=== PATIENT | male | born 1970 | race Caucasian/White ===

== ENCOUNTER 2018-01-31 10:04 | Day surgery (SDC) | payer OTHER, SELFPAY ==
[2018-01-27 12:52] LABS: Hematocrit 45.5 % (40-54); Hemoglobin 15.7 g/dl (13.0-16.5); Mean Corp Hgb Conc 34.5 g/gl (32-36); Mean Platelet Vol. 9.7 fl (6.2-12.0); Platelet Count 252 K/mm3 (150-450); RBC Distribution Width CV 12.6 % (11.6-14.6); RBC Distribution Width SD 40.4 fl (35.1-43.9); Red Blood Count 5.23 M/mm3 (4.6-6.2)
[2018-01-27 12:54] LABS: Scan Indicated on CBC? Y/N NO
[2018-01-27 13:12] LABS: Anion Gap 7 (5-15); BUN 13 mg/dL (7-18); BUN/Creat Ratio 14.1 RATIO (10-20); Calcium,Total 9.4 mg/dL (8.5-10.1); Chloride 108 mmol/L (98-107); Creatinine, Serum 0.92 mg/dL (0.70-1.30); EST Glomerular Filtration Rate 92 mL/min (>60); Est Glom Filt Rate - Afr Amer 112 mL/min (>60); Glucose 82 mg/dL (74-106); Sodium Level 143 mmol/L (136-145)
--- OUTSIDE RECORDS SUMMARY | 2018-01-27 13:23 | XMS RPT_ITS ---
:1970 Author Organization [place] Care Team Providers Name Role Phone Kings Kristie Attending Unavailable Cebul III, Mike Referring Unavailable Cebul III, Mike Primary Care Unavailable Yaz Worthington Attending Unavailable LisaisKrista Attending Unavailable Roof, Lázaro Sen Attending Unavailable Cebul III, Mike Referring Unavailable Cebul III, Mike Primary Care Unavailable Kristie Ku Attending Unavailable Cebul III, Mike Referring Unavailable Carla, Jeffery Attending Unavailable Cebul III, Mike Referring Unavailable KingsKristie maki Attending Unavailable Cebul III, Mike Referring Unavailable Cebul III, Mike Primary Care Unavailable PROBLEMS PROBLEMS DATE TYPE CONDITION / CODE ATTENDING STATUS SOURCE 01/27/2018 Unknown R42 - Dizziness KingsKristie Active [place] and giddiness / Community R42(ICD-10) Hospital Repository 01/27/2018 Unknown Z95.818 - Presence Carla, Jeffery Active [facility] of other cardiac Community implants and Hospital grafts / Repository Z95.818(ICD-10) 01/27/2018 Unknown R07.89 - Other Carla, Jeffery Active [place] chest pain / Community R07.89(ICD-10) Hospital Repository 08/10/2017 Unknown I10 - Essential Roof, Lázaro Sen Active [facility] (primary) Community hypertension / Hospital I10(ICD-10) Repository 08/10/2017 Unknown I38 - Roof, Lázaro Sen Active [facility] Endocarditis, Community valve unspecified Hospital / I38(ICD-10) Repository 08/10/2017 Unknown G47.33 - Roof, Lázaro Sen Active [place] Obstructive sleep Community apnea (adult) Hospital (pediatric) / Repository G47.33(ICD-10) PROCEDURES PROCEDURES No Procedure Records FoundRESULTS RESULTS CARDIOLOGY VISIT Observed: 01/27/2018 Status: F Source: [facility] REPORT 11:25 AM [facility] RE[facility]ITORY [facility] [facility] [address] [facility] [address] [place] [address] [phone] VISITDate of Service: 01/27/18MR#: [id number] Acct: [id number]: NELLY ALLEN JR Rep #: [id number]: 1970 Provider: Jeffery Aguirre MDAge/Sex: 47/M Location: BMS.WHGStatus: SignedHPIHPIChief Complaint: Follow-up visit.Details: NELLY ALLEN JR, is a 47 M who presents to the office today for a follow-up visit.He is a gentleman with a history of dizziness status post implantable loop recorder in August2014 which is close to end of life. He says that he occasionally gets some fluttering in hischest interrogation of the loop recorder did not demonstrate any significant abnormalities. Hesays that he occasionally also has some burning sensation in his left arm. He has had nodizziness or diaphoresis no near syncope or syncope is been compliant with his medications.His physical exam today demonstrates clear lung troncoso regular rate and rhythm and no pedaledema.IntakeVital Signs01/27/18 Height 6 ft 1 in01/27/18 Weight: 248 lb01/27/18 Body Mass Index (BMI) 32.709 Blood Pressure 132/ Blood Pressure Location Lt brachialIntakeVisit Reasons: 6 M FU, explant 01-31; pacer @ 11Interpreter Required: NoAccompanied by: noneIs patient in pain?: NoAllergieslansoprazole [From Prevacid] Allergy (Verified 08/17/14 08:15)UnknownMedicationsAlbuterol Inhaler [Ventolin Hfa (SP)] 1 - 2 puff INHALATION Q4H PRN PRN 08/17/14 [HistoryConfirmed 01/27/18] coenzyme Q10 100 mg capsule 100 mg PO QDAY 06/30/17 [History Confirmed 01/27/18] fluticasone 50 mcg/actuation nasal spray,suspension 1 spray INTRANASAL DAILY PRN 07/07/17[ History Confirmed 01/27/18]PFSHMedical History Abnormal electrocardiogram (Chronic)Hyperlipidemia (Chronic)Status post placement of implantable loop recorder (Chronic)Dizziness and giddiness (Chronic)Dyspnea, unspecified (Acute)Family history of coronary artery disease (Acute)Family history of sudden cardiac (Acute)GERD (gastroesophageal reflux disease) (Acute)GEOVANNI (obstructive sleep apnea) (Chronic)Other specified cardiac device in situ (Chronic)Family history of coronary artery disease (Inactive)Family history of hypertension (Inactive)Family history of sudden cardiac (Inactive) Obstructive sleep apnea (Inactive)Surgical History History of tonsillectomy (Resolved)Family History (Reviewed 01/27/18 @ 11: 20 by Jeffery Aguirre MD)Father CAD (coronary artery disease)Grandfather Heart diseaseFamily history of sudden cardiac deathOther Family history of coronary artery diseaseFamily history of hypertensionSocial HistorySmoking Status: Never smokeralcohol intake: neversubstance use type: does not usecaffeine: Yes Type: other, teawhat type of physical activity do you participate in: noneseatbelt use: alwaysdo you feel safe at home: YesROSConstConst: Negative for fatigue, weakness, night sweats, excessive sweating, frequent falls,headache(s) or daytime sleepinessEyesEyes: Negative for loss of peripheral vision, transient loss of vision, blind spots, doublevision or blurry visionENTENT: Negative for headache(s), dizziness, balance problems, Nosebleed/epistaxis, tongueswelling or lip swellingCardioChest Pain: NoPalpitations: NoEdema: NoneMuscle aches with walking: NoneRespRespiratory: Negative for SOB at rest, SOB orthopnea\SOB lying down, Cough, paroxysmalnocturnal dyspnea or SOB with activityGIGI: Negative nausea, vomiting , heartburn, black,tarry stools or bright, red blood in stoolsGUGU: Negative for hematuriaMuscMusc: Negative for balance problems, muscle aches/ myalgia, muscle weakness or joint painSkinSkin: Negative non-healing lesions, unusual bruising or rashNeuroNeuro: Negative for weakness, frequent falls, headache(s), double vision, dizziness,lightheadedness, orthostatic symptoms, blurry vision or lack of coordinationHemaHematologic/Lymphatic: Negative for easy bruising or easy bleedingEndoEndo: Negative for fatigue, excessive sweating, cold intolerance, heat intolerance, increasedthirst/drinking or hair lossPsychPsych: Negative for anxiety or depressionAllergyAllergy/Immunology: Negative for throat swelling, Negative for tongue swelling, Negative forhives, Negative for rash, Negative for lip swellingCardiology ExamConstAppearance: cooperative, healthy appearing, well developed, well groomed and no acute distressNutritional Appearance: well nourished and average body habitusOrientation: alert, awake and oriented z1TfiqFafy: normal to inspection, normocephalic and atraumaticEars: hearing grossly normal bilaterally and external ears normalNose: external nose normal, nasal mucous membranes and turbinates normal, nares normal, septumnormal, no nasal dischargeFace and Sinus: face symmetricMouth: oral mucosae normal, tongue normal, oropharynx normal and moist mucous membranesTeeth and gingiva: dentition normalThroat: posterior oropharynx normal, tonsils normal and uvula midlineEyesGeneral: appearance normal, both eyes and all related structuresEyelids: eyelids normalConjunctivae: conjunctivae normalPupils: PERRL, normal by confrontation and accommodation normalEOM: EOM intact bilaterallyNeckNeck: normal visual inspection, trachea midline and no JVDJVD: +5Carotids: normal carotid upstroke and bounding pulsesChestChest inspection: normal inspection of the chest, symmetric chest movement and normalrespiratory effortAuscultation: Bilateral: Clear to AuscultationCardioPalpation: normal PMIRate: regular rateRhythm: regular rhythmHeart sounds: S1 normal, S2 normal and normal , physiologic split S2;negative rub, gallop or murmurGIGI: normal to inspection, soft, no hepatosplenomegaly and bowel sounds presentNeuroGeneral: alert, awake, oriented x3, no focal sensory deficit, gait normal and moves allextremitiesSkinSkin: no rashes or lesions notedExtremitiesPulses: Normal: Right Femoral Pulse, Left Femoral Pulse, Right Dorsalis Pedis Pulse, LeftDorsalis Pedis Pulse, Right Posterior Tibial Pulse, Left Posterior Tibial Pulse, Right RadialPulse, Left Radial PulseLower Extremity Edema: None: BilateralMusculoskelMusculoskeletal: No joint tendernessPsychPsychological: normal affectAssessment AND Plan1. Status post placement of implantable loop recorder Z95.818PlanHe is status post implantable loop recorder which is close to end of life my recommendation atthis time would be for us to explant it and then see how he does.2. Chest discomfort R07.89PlanHe has complained of some left arm burning. He has not had a recent stress test and myrecommendation would be for us to perform an exercise myocardial perfusion stress test to makesure that there is no ischemic component to his symptoms. Depending on the findings furtherrecommendations will then be made.OrdersOrders:Plan DetailFollow Up1 Year (jhr)CodingLevel of Care CodeOff vis,est,level 4DiagnosesStatus post placement of implantable loop recorder Z95.818Chest discomfort R07.89CodingLevel of Care CodeOff vis,est,level 4DiagnosesStatus post placement of implantable loop recorder Z95.818Chest discomfort R07. 1125 <Electronically signed by Jeffery Aguirre MD>Date Jeffery Aguirre [facility] Signature: Date (if applicable)CC: Mike Masters III, MD PACEMAKER CHECK Observed: 10/21/2017 Status: F Source: JANNET 10:16 AM [facility] REPOSITORY [facility] [address]mv[address] [facility]. [address] [place] [address] [phone] CheckDate of Service: 10/20/17 1148MR#: [id number] Acct: [id number]: NELLY ALLEN JR Rep #: [id number]: 1970 From: Kristie Gomez/Sex: 47/M [facility]: SignedCommentsSummary Comments: Remote Implantable Loop Recorder Evaluation: See attached scanned Carelinkreport. Remote interrogation shows no patient activated symptoms, no tachy, no pauses, no bradyand no AT/AF episodes since 09/15/17. Presenting rhythm shows NSR @ 70 bpm. Battery shows RRTsince 09/14/17. Will schedule for ILR removal when pt comes in for routine o.v in January.DeviceDeviceDate Interviewed: 09/23/17ollow-up Location: remoteInterview Reason: scheduled follow upManufacturer: MedtronicName: Bev LinIsisModel: [id number] #: [id number] Date: 08/20/14Year(s): 3Implant Physician: Dr. Jeffery AguirrePatient CharacteristicsPatient Substrate: SyncopeUnderlying rhythm: Sinus rhythmDevice CharacteristicsType: Implantable loop recorderRemote Follow-Up: CarelinkBilling CodesILR Device Interrogate: YesAssessment AND PlanProblems1. Status post placement of implantable loop recorder Z95.8182. Dizziness and giddiness R4 1157 <Electronically signed by Kristie Ku >Date Kristie Ku10/21/17 1016<Electronically signed by Jeffery Aguirre MD>Mitchigner Signature: Date (if applicable) Jeffery Aguirre MDCC : CARDIOLOGY VISIT Observed: 07/08/2017 Status: F Source: [facility] REPORT 7:09 AM [facility] REPOSITORY [facility] [facility] [id number] [facility]. [address] [place] [address] [phone] VISITDate of Service: 07/07/17MR#: [id number] Acct: [id number]: NELLY ALLEN JR Rep #: [id number]: 1970 Provider: BLANCA Sen RoofAge/Sex: 46/M [facility]GStatus: SignedHPIHPIDetails: NELLY ALLEN JR, is a 46 M who presents to the office today for a cardiovascularoutpatient follow-up. Patient has a history of dizziness status post implantable loop recorderin August 2014, and GEOVANNI.Pt. denies chest, arm, jaw, or neck discomfort. His exercise tolerance is stable. Pt. deniessymptoms of CHF, palpitations, lightheadedness, near syncope, or syncopal episodes. Pt. deniesedema or claudication issues. Pt. denies orthopnea, PND, fever, chills, blood in urine, bloodin stool, myalgia, or unexplainable fatigue.Pt. states using CPAP nightly and notices when he sleeps well he doesn't feel any dizzinessthroughout the day. He states there are nights when he is up frequently and sometimes noticeshe feels dizziness throughout the following day. His dizziness seems to correlate with positionchanges at times. He states staying well hydrate.IntakeVital Signs07/07 Height 6 ft 1 in07/07/17 Weight: 259 lb07/07 Body Mass Index (BMI) 34.202 Blood Pressure 144/ Blood Pressure Location Lt brachialIntakeVisit Reasons: 6 M FUInterpreter Required: NoAccompanied by: NoneIs patient in pain?: NoAllergieslansoprazole [From Prevacid] Allergy (Verified 08/17/14 08:15)UnknownMedicationsAlbuterol Inhaler [Ventolin Hfa (SP)] 1 - 2 puff INHALATION Q4H PRN PRN 08/17/14 [HistoryConfirmed 06/30/17] coenzyme Q10 100 mg capsule 100 mg PO QDAY 06/30/17 [History Confirmed 06/30/17] fluticasone 50 mcg/actuation nasal spray,suspension 1 spray INTRANASAL DAILY PRN 07/07/17[ History Confirmed 07/07/17]Ejection fraction %: 55 to 59PFSHMedical HistoryAbnormal electrocardiogram (Chronic)Hyperlipidemia (Chronic)Status post placement of implantable loop recorder (Chronic)Dizziness and giddiness (Chronic)Dyspnea, unspecified (Acute)Family history of coronary artery disease (Acute)Family history of sudden cardiac (Acute)GERD (gastroesophageal reflux disease) (Acute)GEOVANNI (obstructive sleep apnea) (Chronic)Other specified cardiac device in situ (Chronic)Family history of coronary artery disease (Inactive)Family history of hypertension (Inactive)Family history of sudden cardiac (Inactive) Obstructive sleep apnea (Inactive)Surgical HistoryHistory of tonsillectomy (Resolved)Family History Father CAD (coronary artery disease)Grandfather Heart diseaseFamily history of sudden cardiac deathOther Family history of coronary artery diseaseFamily history of hypertensionSocial HistorySmoking Status: Never smokeralcohol intake: neversubstance use type: does not usecaffeine: Yes Type: other, teawhat type of physical activity do you participate in: noneseatbelt use: alwaysdo you feel safe at home: YesROSConstConst: Positive for difficulty sleeping;negative for fatigue, weakness, body ache, fever(s) or chillsENTENT: Positive for dizzinessCardioChest Pain: NoPalpitations: NoEdema: NoneMuscle aches with walking: NoneRespRespiratory: Negative for SOB with activity, SOB at rest, SOB orthopnea\SOB lying down orparoxysmal nocturnal dyspneaGIGI: Negative nausea, black,tarry stools, bright, red blood in stools or vomitingblood/hematemesisGUGU: Negative for hematuria or frequent nighttime urination/ nocturiaMuscMusc: Negative for muscle aches/ myalgiaNeuroNeuro: Positive for dizziness;negative for weakness, lightheadedness, near syncope, syncope or orthostatic symptomsEndoEndo: Negative for fatigueCardiology ExamConstAppearance: cooperative, healthy appearing, comfortable and no acute distressOrientation: alert, awake and oriented a3UvmcWdds: normal to inspectionMouth: oral mucosae normalNeckNeck: no JVD and normal visual inspectionCarotids: normal carotid upstrokeChestChest inspection: normal inspection of the chest and normal respiratory effortAuscultation: Bilateral: Clear to AuscultationCardioRate: regular rateRhythm: regular rhythmHeart sounds: S1 normal and S2 normal;negative rub or gallopGIGI: normal to inspectionNeuroGeneral: alert, awake, oriented x3 and CN's II-XI intact bilaterallySkinSkin: no rashes or lesions notedExtremitiesPulses: Normal: Right Posterior Tibial Pulse, Left Posterior Tibial Pulse, Right Radial Pulse,Left Radial PulseLower Extremity Edema: None: BilateralPsychPsychological: normal affectSupplemental InfoImplantable loop recorder from June 2017 showed no activated symptoms, no tacky, no pauses,no bradycardia, and no AT/AF episodes. Battery was noted to be okay.Echocardiogram from August 2014 showed an ejection fraction 55%, mild mitral valveinsufficiency, and mild tricuspid valve insufficiencyHeart catheterization from October 2007 showed an ejection fraction of 65% and angiographicallynormal coronary arteries.Assessment AND Plan1. Dizziness and giddiness W05Atwn - Frida Agudeloclaudia's implantable loop recorder from June 2017 showed no activated symptoms, no tacky,no pauses, no bradycardia , and no AT/AF episodes. Battery was noted to be okay. Patientbelieves that his dizziness correlates with his sleep. He will continue to improve his sleephygiene. We will continue to monitor loop recorder for any rhythm changes.2. Essential hypertension J16Huui - Frida Agudeloclaudia's blood pressure is slightly elevated today. It has not been elevated in the past. Hewas asked to continue to monitor his blood pressure and contact our office if he notices thatit increases or remains elevated. He is not on a blood pressure medication at this time. Ifit remains elevated we can consider medication. Patient is hopeful to increase his overallactivity to help with his weight, blood pressure, and sleep. We will continue to monitor this.3. Valvular heart disease Q62Swwg - Lázaro Cavazos NP- CEchocardiogram from August 2014 showed an ejection fraction 55%, mild mitral valveinsufficiency , and mild tricuspid valve insufficiency. Patient denies any shortness of breath, activity intolerance, or lower extremity pedal edema. We will continue to monitor his throughhistory, exam, and repeat echocardiogram as needed.4. GEOVANNI (obstructive sleep apnea) G47.33Plan - Lázaro Cavazos NP-Natacha states using his CPAP nightly. Patient will continue to follow-up with Dr. Lorenzo for this.Plan DetailAdditional Comments - Lázaro Cavazos NP-CDiscussed the above patient with Dr. 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 0958 <Electronically signed by Lázaro Cavazos AIR AND MISSILE DEFENSE CREWMEMBER-C>Date Lázaro Cavazos AIR AND MISSILE DEFENSE CREWMEMBER-C007/08/17 0709<Electronically signed by Jeffery Aguirre MD>Cosigner Signature: Date (if applicable) Jeffery Aguirre MDCC: Mike Masters III, MD OFFICE VISIT REPORT Observed: 07/06/2017 Status: F Source: JANNET 7:24 PM [facility] [place], [place] [address]PYGIMQ VISITDate of Service: 06/17/17MR#: [id number] Acct: [id number]: NELLY ALLEN JR Rep #: [id number]: 1970 Provider: Kristie Gomez/Sex: 46/M [facility]tatus: SignedCommentsSummary Comments: Remote Implantable Loop Recorder Evaluation: Remote interrogation shows nopatient activated symptoms, no tachy, no pauses, no colton and no AT/AF episodes since 03/24/17.Presenting rhythm shows NSR @ 70 bpm. Battery ok. Next remote f/u appt scheduled for in 3mos.DeviceDeviceDate Interviewed: 06/17/17ollow-up Location: remoteInterview Reason: scheduled follow upManufacturer: MedtronicName: Bev LinQModel: [id number] #: [id number] Date: 08/20/14Year(s): 2Implant Physician: Dr. Jeffery AguirrePatient CharacteristicsPatient Substrate: SyncopeUnderlying rhythm: Sinus rhythmDevice CharacteristicsType: Implantable loop recorderRemote Follow-Up: CarelinkBilling CodesILR Device Interrogate: YesAssessment AND PlanProblems1. Dizziness and giddiness R422. Status post placement of implantable loop recorder Z95.6474207/01/17819 <Electronically signed by Kristie Ku >Date Kristie Ku07/06/171923<Electronically signed by Jeffery Aguirre MD>Cosigner Signature: Date (if applicable) Jeffery Aguirre [facility] : ALLERGIES ALLERGIES DATE TYPE / CODE NAME / CODE REACTION SEVERITY SOURCE 08/17/2014 Drug lansoprazole Unknown Unknown [facility] Allergy/4160 /[id number]( [facility] [address]([facility] RXNORM) Repository [place]) ENCOUNTERS ENCOUNTERS ADMIT/DISCHARGE ACCOUNT ADMITTING ENCOUNTER LOCATION SOURCE NUMBER CLASS 01/27/2018 [id number] Ambulatory BMSBuilding: [place] [facility] Repository 01/27/2018/ [id number] Ambulatory BMSBuilding: [place] 8 BMS.[facility] Repository 09/23/2017/ [id number] Ambulatory BMSBuilding: [place] 8 BMS.[facility] Repository 07/07/2017/ [id number] Ambulatory BMSBuilding: [place] 8 BMS.[facility] Repository 07/07/2017 [id number] Ambulatory BMSBuilding: [place] [facility]MS.[facility] Repository 07/06/2017 [id number] Ambulatory BMSBuilding: [place] [facility] Repository 06/17/2017/ [id number] Ambulatory BMSBuilding: [place] 8 BMS.[facility] Repository PAYERS PAYERS ENCOUNTER GUARANTOR PAYER SUBSCRIBER SOURCE 01/27/2018 NELLY ALLEN Primary JUSTYN L TIFFANYDOB: [place] [id number] ISLAM Insurance:AETNAPolicy [id number], [facility] [address]Lia: [id number] Repository Date:2654-16-10YC BOX () [id number] JOANGENEVA [id number]: 01/27/2018 Secondary NOT GIVENUNK [place] Insurance:SELF PAY [facility] Number: Effective Repository Date:2018-01-27 01/27/2018 NELLY ALLEN Primary JUSTYN L TIFFANYDOB: [place] [id number] ISLAM Insurance:AETNAPolicy [id number] Regional Medical Center, Number: [facility] [address]Jho: [id number] Repository Date:1373-28-35QH BOX () [id number] JOANGENEVA [phone]: 01/27/2018 Secondary NOT GIVENUNK [place] Insurance:SELF PAY [facility] Number: Effective Repository Date:2018-01-26 09/23/2017 NELLY ALLEN Primary JUSTYN L TIFFANYDOB: [place] [id number] ISLAM Insurance:AETNAPolicy [id number] Regional Medical Center, Number: [facility] [address]Ilw: [id number] Repository Date:4335-76-22HF BOX (ZQ) [id number] GENEVA SOTELO [address]YV: 09/23/2017 Secondary NOT GIVENUNK [place] Insurance:SELF PAY [facility] Number: Effective Repository Date:2017-09-23 07/07/2017 NELLY ALLEN Primary JUSTYN L MURRAYDOB: [place] [id number] ISLAM Insurance:AETNAPolicy [id number] Regional Medical Center, Number: [facility] [address]Zfo: [id number] Repository Date:1079-81-67VE BOX () [id number] GENEVA SOTELO [address]UJ: 07/07/2017 Secondary NOT GIVENUNK [place] Insurance:SELF PAY [facility] Number: Effective Repository Date:2017-04-17 07/07/2017 NELLY ALLEN Primary NELLY ALLEN [place] [id number] ISLAM Insurance:MEDICAL JRDOB: [facility] [id number] [address]Vui: Number: Repository [id number] (HP) Date:1878-07-05JL [address] [place] [phone]: 07/07/2017 Secondary NOT GIVENUNK [place] Insurance:SELF PAY [facility] Number: Effective Repository Date:2017-07-07 07/06/2017 NELLY ALLEN Primary NELLY Lev TIFFANY [place] [id number] ISLAM Insurance:MEDICAL JRDOB: [facility] [id number] Hospital [address]Snc: Number: Repository [id number] (HP) Date:7097-98-46QO [address] [place] [phone]: 07/06/2017 Secondary NOT GIVENUNK [place] Insurance:SELF PAY [facility] Number: Effective Repository Date:2017-07-06 06/17/2017 NELLY ALLEN Primary NELLY Lev ALLEN [place] [id number] ISLAM Insurance:AETNAPolicy JRDOB: [facility], Number: Effective [id number] Hospital [address]Lkv: Date:3381-45-98IO BOX Repository [id number] GENEVA SOTELO () [address]CK: 06/17/2017 Secondary NOT GIVENUNK [place] Insurance:SELF PAY [facility]: Effective Repository Date:2017-04-17
[2018-01-28 11:44] VITALS: BMI 32.7
--- NOTE | 2018-01-31 11:18 | CL.IE_ITS ---
Patient: NELLY ALLEN JR Study Date: 01/31/2018 Performing: Jeffery Aguirre MD : 1970 Age: 47 Gender: male PROCEDURES PERFORMED [id number] OF LOOP RECORDER INDICATIONS PROCEDURE DETAILS The patient was brought to the Catheterization Lab in the postabsorptive nonsedated state. Informed consent was obtained prior to the procedure. Local anesthetic was given subcutaneously to the left up per chest area with Lidocaine 2%. Incision was made to the left upper chest. ICM Loop Recorder was re moved. Skin closure was completed with. Skin closure was completed with Steri Strips. The patient to lerated the procedure well. Estimated Blood Loss: 10 ml's IMPLANTED / EX-PLANTED DEVICES EXPLANTED DEVICE(S): ICM Loop Recorder DEVICE PARAMETERS CONCLUSIONS / RECOMMENDATIONS Device Conclusions: Successful removal of a patient activated loop recorder. Device Recommendations: Follow up with Primary Care Physician PROCEDURE MEDICATIONS Versed 1 mg IV Oxygen: 2 L/min via nasal cannula Signed By Jeffery Aguirre MD On 01/31/2018 11:17:51 Jeffery Aguirre MD
== END 2018-01-31 12:20 | disposition home or self-care (01) ==
LOC: CLSP 10:05
PROVIDERS: Family Provider Family Medicine; PCP Family Medicine; Visit Provider Internal Medicine Cardiovascular Disease
DX: R07.89 Other chest pain (principal); Z45.09 Encounter for adjustment and management of other cardiac device; R42 Dizziness and giddiness; E78.5 Hyperlipidemia, unspecified; G47.33 Obstructive sleep apnea (adult) (pediatric); K21.9 Gastro-esophageal reflux disease without esophagitis; Z95.818 Presence of other cardiac implants and grafts
CPT/HCPCS: 33284; 36415; 80048; 85027; 99152; J7040

== ENCOUNTER → 2018-02-09 06:19 | Outpatient (CLI) | payer OTHER, SELFPAY ==
--- NOTE | 2018-02-09 12:21 | STRESSREP_ITS ---
Stress Test Report Exercise myocardial perfusion stress test. 47-year-old male with a history of dizziness. Stress protocol: Resting EKG demonstrates normal sinus rhythm with a rate of 64 bpm normal intervals and noted resting blood pressure 140/84 mmHg. The patient exercised according to regular Davis protocol for total duration of 10 minutes completing 1 minute into stage IV of the Davis protocol. The maximum heart rate attained was 181 bpm which was 105% of maximum predicted heart rate the maximum workload was 11.7 metabolic equivalents. The resting blood pressure is 140/84 with a peak blood pressure 196/62. Myocardial perfusion protocol. 14.7 mCi of technetium 99m sestamibi was injected at rest. The patient exercised according to regular Davis protocol for total duration of 10 minutes at peak exercise 44.2 mCi of technetium 99m sestamibi was injected stress images were obtained stress and rest images were reconstructed and compared in the short axis vertical long and horizontal long axis. Gated images were also obtained per Perfusion SPECT analysis: Review of the images demonstrate normal uptake of tracer noted in all areas of t he myocardium. The resting images similarly demonstrate normal uptake of tracer noted in all areas of the myocardium. No areas of reversibility are noted suggest ischemia. Gated SPECT analysis: The gated ejection fraction is noted to be 59%. Conclusion: Normal exercise myocardial perfusion stress test with no evidence of ischemia. Preserved ejection fraction. Excellent functional capacity.
== END ==
PROVIDERS: Family Provider Family Medicine; PCP Family Medicine; Referring Provider Internal Medicine Cardiovascular Disease; Visit Provider Internal Medicine Cardiovascular Disease
DX: R07.89 Other chest pain (principal)
CPT/HCPCS: 78452; 93017; A9500; A4216

== ENCOUNTER 2021-05-14 09:59 | Outpatient (CLI) | payer OTHER, SELFPAY ==
--- NOTE | 2021-05-14 10:02 | ECHOD_ITS ---
Reason For Study: MV DISORDER Procedure This was a 2D Doppler, Color Flow transthoracic echocardiogram. Exam performed in department. Left Ventricle Normal LV size. Left ventricular systolic function is normal. The estimated ejection fraction is 65 %. No regional wall motion abnormalities noted. Right Ventricle Normal RV size. Normal systolic function. Atria Normal left atrium. Normal right atrium. Mitral Valve Normal mitral valve. Mild (1+) eccentric mitral valve insufficiency. Tricuspid Valve Normal tricuspid valve. Aortic Valve Normal aortic valve. Trisinus/trileaflet aortic valve. Pulmonic Valve Normal pulmonic valve. Great Vessels Normal aortic root. The pulmonary artery is normal size. Normal inferior vena cava. Pericardium/Pleural No pericardial effusion. MMode/2D Measurements & Calculations LVIDd: 4.7 cm IVSd: 1.1 cm Ao root diam: 3.3 cm LVIDs: 3.2 cm LVPWd: 1.1 cm FS: 32.2 % LAV(MOD-bp): 57.1 ml LA A4 area: 18.8 cm2 LA dimension(2D): 3.8 cm LAV(MOD-bp) Indexed: 23.6 ml/m2 LAV(MOD-sp2): 56.6 ml LAV(MOD-sp4): 56.1 ml RA A4 area: 18.0 cm2 Doppler Measurements & Calculations MV E max dev: 91.4 cm/sec Lat Peak E' Dev: 12.2 cm/sec Med Peak E' Dev: 8.2 cm/sec MV A max dev: 64.6 cm/sec E/E' lat: 7.5 E/E' med: 11.2 MV E/A: 1.4 Ao V2 max: 138.3 cm/sec LV V1 max: 116.3 cm/sec PA V2 max: 92.9 cm/sec Ao max P.7 mmHg LV V1 max P.4 mmHg TR max dev: 255.4 cm/sec TR max P.1 mmHg ECHO/Echo Complete Interpretation Summary Normal LV size. Left ventricular systolic function is normal. The estimated ejection fraction is 65 %. Mild (1+) eccentric mitral valve insufficiency. Structurally normal valves. Ordering Physician: Pippa Avina Referring Physician: NESSA MARKHAM Performed By: Samantha Cuba RDCS, RVT
== END 2021-05-14 23:59 | disposition short-term general hospital (02) ==
LOC: CVS 10:01
PROVIDERS: PCP Family Medicine; Referring Provider Nurse Practitioner Gerontology; Visit Provider Nurse Practitioner Gerontology
DX: I34.0 Nonrheumatic mitral (valve) insufficiency (principal)
CPT/HCPCS: 93306

== ENCOUNTER 2021-06-30 13:16 | Outpatient (CLI) | payer SELFPAY ==
[2021-06-30 13:33] VITALS: BP 125/80; PULSE 64; RESP 16; O2SAT 97; BMI 33.6
--- NOTE | 2021-06-30 13:35 | CT_ITS ---
STUDY: CARDIAC CALCIUM SCORING - CT CHEST REASON FOR EXAM: Male, 50 years old. CTA CORONARY ABNL CARDIOVASCULAR RESULTS TECHNIQUE: Axial non-enhanced images were acquired through the heart for the sole purpose of measuring coronary artery calcium. Individualized dose optimization techniques were used for this CT. COMPARISON: None. FINDINGS: Visualized surrounding anatomy: Normal. Left Main Coronary Artery: 0 Left Anterior Descending Artery: 0 Left Circumflex Artery: 0 Right Coronary Artery: 0 Total Calcium Score: 0 CT/Limited Chest CT w/CCTA IMPRESSION: A Calcium Score of 0 places the patient in the approximate 0 to 25 percentile, based on the [employer] data calculator. Please go to: [email or web address] , for a description of the calculator. Electronically Signed: Philip Briceno MD at 15:24 EST ,
--- NOTE | 2021-06-30 17:25 | CA.SCORE ---
Calcium Scoring Date of Study:: 06/30/21 Coronary Calcium Scoring: High-resolution Computed Tomographic imaging of the chest was performed on 06/30/2021 with particular attention paid to the coronary arteries. Images from the examination were analyzed for the presence and extent of coronary artery calcification , using coronary calcium quantification software. The patient tolerated the procedure well and there were no complications. The results of the coronary calcification analysis are provided below. Findings Coronary Artery Left Main (LM): 0 Left Anterior Descending (LAD): 0 Left Circumflex (LCX): 0 Right Coronary Artery (RCA): 0 Total Agatston Score: 0 Percentile Ranking: According to prepublished reference tables 0% of patients of the same gender and similar age had the same and/or lower scores. Calcium Scoring Interpretation: 0 No identifiable atherosclerotic plaque. Very low cardiovascular disease risk. <5% chance of presence coronary artery disease A Negative Examination 1-10 Minimal Plaque burden. Significant coronary artery disease very unlikely. 11-100 Mild plaque burden. Likely mild or minimal coronary atherosclerosis. 101-400 Moderate plaque burden Moderate non-obstructive coronary artery disease highly likely. Over 400 Extensive plaque burden. High likelihood of at least one significant coronary stenosis (>50% diameter) Calcium Score: 0 Negative Examination Conclusion: Continue cardiovascular risk factor evaluation/medical therapy as deemed appropriate. This note was generated using a voice recognition system and there may be incorrect words, spelling or punctuation that were not noted when reviewing the office note prior to saving.
== END 2021-06-30 23:59 | disposition home or self-care (01) ==
LOC: CVS 13:19
PROVIDERS: PCP Family Medicine; Referring Provider Nurse Practitioner Gerontology; Visit Provider Nurse Practitioner Gerontology
DX: Z13.6 Encounter for screening for cardiovascular disorders (principal); Z82.41 Family history of sudden cardiac death
CPT/HCPCS: 75571; 76380

== ENCOUNTER → 2022-10-14 | Outpatient (CLI) | payer OTHER, SELFPAY ==
[2022-10-14 10:26] LABS: AST(SGOT) 47 U/L (15-37); Alanine Aminotransfer ALT/SGPT 41 U/L (16-61); Alkaline Phosphatase 81 U/L (45-117); Bilirubin, Direct 0.13 mg/dL (0.00-0.30); Cholesterol 186 mg/dL (200); Globulin 3.7 g/dL (2.2-4.2); High Density Lipoprotein 38 mg/dL; Protein, Total 7.7 g/dL (6.4-8.2); Triglycerides 143 mg/dL; Very Low Density Lipoprotein 29 mg/dL (5-40)
== END | disposition home or self-care (01) ==
LOC: LAB 09:08
PROVIDERS: PCP Family Medicine; Referring Provider Nurse Practitioner Gerontology; Visit Provider Nurse Practitioner Gerontology
DX: E78.5 Hyperlipidemia, unspecified (principal)
CPT/HCPCS: 36415; 80061; 80076